=== PATIENT | female | born 1990 | race Caucasian/White ===

== ENCOUNTER 2017-12-31 06:26 | Day surgery (SDC) | payer OTHER ==
[~2017-12-31 06:26] MED LIST: Buffered Lidocaine 0.9% SYRIN* 5 ML/SYR SYRINGE INTRADERM ONE; Dexamethasone IV* 4 MG/ML 1 ML (4 MG) IV SLOW PU ONE; Famotidine IV* 10 MG/ML 2 ML (20 mg) IV ONE
[2017-12-31] MEDS ORDERED: ceFAZolin 1 GM ADVAN(*) 1 GM ADDV.VIAL IVPB ONE (06:54)
[2017-12-31] MEDS ORDERED: ceFAZolin 2 GM PREMIX in ORs 2 GM/50 ML BAG IVPB ONE (06:54)
[2017-12-31] MEDS ORDERED: Dexamethasone IV* 4 MG/ML 1 ML (4 MG) ONE (06:54)
[2017-12-31] MEDS ORDERED: Scopolamine 1.5 mg* PATCH ONE (06:54)
[2017-12-31] MEDS ORDERED: Ondansetron INJ* 2 MG/ML VIAL ONE ×3 (06:54→14:44)
[2017-12-31] MEDS ORDERED: Lidocain 1% EPI 1:100,000 * 30 ML MDV ONE ×2 (06:57→07:23)
[2017-12-31] MEDS ORDERED: Bupivacaine 0.25% SDV* 30 ML ONE (06:57)
[2017-12-31] MEDS ORDERED: Famotidine IV* 10 MG/ML 2 ML (20 mg) ONE (07:10)
[2017-12-31] MEDS ORDERED: Midazolam* 1 MG/ML 5 ML VIAL (5 MG) ONE (07:17)
[2017-12-31] MEDS ORDERED: fentaNYL* 50 MCG/ML 5 ML VIAL (250 MCG VIAL) ONE (07:17)
[2017-12-31] MEDS ORDERED: Atracurium* 10 MG/ML 10 ML VIAL ONE (07:17)
[2017-12-31] MEDS ORDERED: Lidocaine 2% PF * 5 ML VIAL ONE (07:19)
[2017-12-31] MEDS ORDERED: Glycopyrrolate IV* 0.2 MG/ML 1 ML VIAL ONE (08:14)
[2017-12-31] MEDS ORDERED: EPHEDrine (Pressors)* 50 MG/ML VIAL ONE (08:14)
[2017-12-31] MEDS ORDERED: fentaNYL* 50 MCG/ML 2 ML VIAL (100 MCG VIAL) ONE ×3 (08:30→10:20)
[2017-12-31] MEDS ORDERED: fentaNYL* 50 MCG/ML 2 ML VIAL (100 MCG VIAL) IV PRN (08:56)
[2017-12-31] MEDS ORDERED: Naloxone* 0.4 MG/ML 1 ML VIAL IV PRN (08:56)
[2017-12-31] MEDS ORDERED: Scopolamine 1.5 mg* PATCH TRANSDERM PRN (08:56)
[2017-12-31] MEDS ORDERED: DiMENhydriNATE IV* 50 MG/ML VIAL IV PUSH PRN (08:56)
[2017-12-31] MEDS ORDERED: Ondansetron INJ* 2 MG/ML VIAL IV PRN (08:56)
[2017-12-31] MEDS ORDERED: HYDROmorphone INJ1* 1 MG/ML SYRINGE ONE (12:42)
[2017-12-31] MEDS ORDERED: oxyCODONE/Acetamin 5/325 MG* TAB ONE ×2 (12:42→13:30)
[2017-12-31] MEDS: HYDROmorphone INJ1* 1 MG/ML SYRINGE IV PRN ×2 (12:45→13:02)
[2017-12-31] MEDS: oxyCODONE/Acetamin 5/325 MG* TAB PO PRN ×2 (13:04→13:31)
[2017-12-31 15:25] VITALS: BP 134/101
== END 2017-12-31 15:39 | disposition home or self-care (01) ==
LOC: UNDOADMIN 06:26 → OR 06:26 → AA 06:26 → EDSTATUS 07:30 → OR 15:39 → UNDODISIN 15:39
PROVIDERS: ATTEND Plastic Surgery
DX: N62 Hypertrophy of breast (principal); M54.2 Cervicalgia; M54.9 Dorsalgia, unspecified; J45.909 Unspecified asthma, uncomplicated; Z87.891 Personal history of nicotine dependence
CPT/HCPCS: 81025; 88305; A9270-GY; A9272; J0690; J1100; J1170; J2250; J2405; J3010